=== PATIENT | female | born 1960 | race Caucasian/White ===

== ENCOUNTER 2016-07-17 06:35 | Outpatient (CLI) | payer MEDICAID ==
[~2016-07-17] VITALS: Ht 160 cm; Wt 73.2 kg
--- NOTE | ~2016-07-17 | HEMODYNAMI ---
PATIENT:MILY CRANE MEDICAL RECORD: [id number] : 60 LOCATION:[facility] ADMISSION DATE: 07/17/16 Generatedon:07/17/201610:45 Patient name: MILY CRANE Patient #: [id number] SSN: : 1960 Date of study: 07/17/2016 Page: Of Hemodynamic Procedure Report Patient Data Patient Demographics Procedure consent was obtained First Name: MILY Gender: Female Last Name: ROSA MARIA : 1960 Patient #: [id number] Age: 55 year(s) Race: Unknown Additional ID: [id number] Contact details [address]: [address] [place] [address] State: [place] City: [place] Zip code: [address] Past Medical History Allergies Allergen Reaction Date Comments Reported Penicillins 07/17/2016 Other allergy 07/17/2016 HALDOL, SUDAFED, ABILIFY, COGENTIN, BUTABARBITAL Admission Admission Data Admission Date: 07/17/2016 Admission Time: 6:35 Lab Results Lab Result Date: 07/17/2016 Lab Result Time: 0:00 Biochemistry Name Units Result Min Max BUN mg/dl 14 --(--*-)-- 7 18 Creatinine mg/dl 0.8 --(-*--)-- 0.6 1.3 CBC Name Units Result Min Max Hemoglobin g/dl 13.2 -*(----)-- 13.5 17.5 Procedure Procedure Types Cath Procedure Diagnostic Procedure LHC LHC w/Coronaries PCI Procedure Coronary Stent Initial Miscellaneous Procedures Moderate Sedation up to 15 minutes Peripheral Cath Diagnostic Procedure Cath Peripheral Bpdfc-Abhpodr-Qxk-Off Procedure Description Procedure Date Procedure Date: 07/17/2016 Procedure Start Time: 10:28 Procedure End Time: 10:42 Procedure Staff Name Function Chay Alanzi MD Performing Physician Rosa Isela Santillan RN Nurse Dominick White RT Monitor Jeremias Woodson RT Scrub Procedure Data Cath Procedure Fluoroscopy Diagnostic fluoroscopy Total fluoroscopy Time: 2.3 time: 2.3 min min Diagnostic fluoroscopy Total fluoroscopy dose: 282 dose: 282 mGy mGy Contrast Material Contrast Material Type Amount (ml) Isovue 300 92 Entry Location Entry Primary Successful Side Size Upsize Upsize Entry Closure Succes sful Closure Location (Fr) 1 (Fr) 2 (Fr) Remarks Device Remarks Femoral Left 5 Fr Vascade artery Closure System Diagnostic catheters Device Type Used For End Catheter Placement Cordis 5Fr Pigtail LV Angiography Catheter (MP) Cordis 5Fr Pigtail Abdominal Catheter (MP) aortogram with runoff Cordis 5Fr JL 4.0 Left Coronary Catheter (MP) Angiography Cordis 5Fr 3DRC Catheter Right Coronary (MP) Angiography Procedure Complications No complications Procedure Medications Medication Administration Route Dosage Oxygen NC 2 l/min Lidocaine 2% added to field 20 Heparin Flush Bag added to field 2 bags (1000units/500ml NS) Versed I.V. 1 mg Fentanyl I.V. 50 mcg Versed I.V. 1 mg Fentanyl I.V. 50 mcg Versed I.V. 1 mg Fentanyl I.V. 50 mcg Heparin Bolus I.V. 4000 units Integrilin (Bolus I.V. 6.8 ml 2mg/ml) Plavix P.O. 600 mg Versed I.V. 1 mg Fentanyl I.V. 50 mcg Hemodynamics Rest HGB: 13.2 (g/dl) Heart Rate: 83 (bpm) Snapshots Pre Cath Intra NCS Post Cath Vital Signs Time Heart Resp SPO2 etCO2 [id number] NIBP (mmHg) Rhythm Pain Sedation Rate (ipm) (%) (mmHg) (mmHg) Status Level (bpm) 10:12:13 91 16 98 0 0 144/88(113) NSR 0 (11) 10(A) , No pain 10:16:24 88 14 95 0 0 133/80(109) NSR 0 (11) 10(A) , No pain 10:20:41 83 17 98 0 0 117/78(89) NSR 0 (11) 10(A) , No pain 10:24:48 94 16 95 0 0 122/77(96) NSR 0 (11) 10(A) , No pain 10:29:02 89 16 95 0 0 138/71(98) NSR 0 (11) 10(A) , No pain 10:33:12 89 16 96 0 0 116/78(105) NSR 0 (11) 10(A) , No pain 10:37:20 105 16 97 0 0 139/82(105) NSR 0 (11) 10(A) , No pain 10:41:57 104 16 98 0 0 120/77(94) NSR 0 (11) 10(A) , No pain Medications Time Medication Route Dose Verified Delivered Reason Notes Effectiveness by by 10:11:30 Oxygen NC 2 Chay Rosa Isela Per physician l/min Katty Santillan RN 10:11:38 Lidocaine 2% added 20ml Chay Chay used for to vial Katty Alaniz MD procedure field 10:11:48 Heparin Flush added 2 Chay Chay used for Bag to bags Katty Alaniz MD procedure (1000units/500ml field NS) 10:24:03 Versed I.V. 1 mg Chay Rosa Isela for sedation Katty Santillan RN 10:24:12 Fentanyl I.V. 50 Chay Rosa Isela for sedation mcg Katty Santillan RN 10:26:34 Versed I.V. 1 mg Chay Rosa Isela for sedation Katty Santillan RN 10:26:36 Fentanyl I.V. 50 Chay Rosa Isela for sedation mcg Katty Santillan RN 10:28:37 Versed I.V. 1 mg Chay Rosa Isela for sedation Katty Santillan RN 10:28:40 Fentanyl I.V. 50 Chay Rosa Isela for sedation mcg Katty Santillan RN 10:31:37 Versed I.V. 1 mg Chay Rosa Isela for sedation Katty Santillan RN 10:31:46 Fentanyl I.V. 50 Chay Rosa Isela for sedation mcg Katty Santillan RN 10:34:37 Heparin Bolus I.V. 4000 Chay Rosa Isela for dose units Katty Santillan RN anticoagulation verified with dr alaniz 10:36:42 Integrilin I.V. 6.8 Chay Rosa Isela for 6.8 ml (Bolus 2mg/ml) ml Katty Santillan RN antiplatelet administered therapy from 10ml vial 3.2 ml wasted 10:39:23 Plavix P.O. 600 Chay Rosa Isela for mg Katty Santillan RN antiplatelet therapy Procedure Log Time Note 9:45:39 Jeremias Woodson RT(R) sent for patient. Start room use. 9:53:29 ACC Patient presents with Stable Angina CCS Anginal Class 2--Slight limitation of ordinary activity. 9:53:37 Diagnostic Cath status Elective 9:53:40 Time tracking: Regular hours 9:53:44 Plan of Care:Hemodynamics will remain stable., Cardiac rhythm will remain stable., Comfort level will be maintained., Respiratory function will remain adequate., Patient/ family verbilizes understanding of procedure., Procedure tolerated without complication., Recovers from procedure without complications.. 10:08:42 Patient received from Pre/Post Procedure Room to CCL 1 Alert and oriented. Tansferred to table in Supine position. 10:08:44 Warm blankets applied, and reynaldo hugger turned on for patient comfort. 10:08:45 Correct patient and procedure confirmed by team. 10:08:46 Signed procedure consent form obtained from patient. 10:08:46 ECG and BP/O2 sat monitors applied to patient. 10:11:13 Vital chart was started 10:11:30 Oxygen 2 l/min NC was given by Rosa Isela Santillan RN; Per physician; 10:11:38 Lidocaine 2% 20ml vial added to field was given by Chay Alaniz MD; used for procedure; 10:11:48 Heparin Flush Bag (1000units/500ml NS) 2 bags added to field was given by Chay Alaniz MD; used for procedure; 10:17:50 Baseline sample Acquired. 10:18:18 Baseline sample Acquired. 10:18:21 Rhythm: sinus rhythm 10:18:23 Full Disclosure recording started 10:19:16 H&P Date Dictated: 07/12/2016 Within 30 days and on chart., H&P Addendum completed by physician on day of procedure. (MUST COMPLETE FOR ALL OUTPATIENTS). 10:19:17 Pre-procedure instructions explained to patient. 10:19:18 Pre-op teaching completed and patient verbalized understanding. 10:19:20 Family unavailable. 10:19:22 Patient NPO since Midnight. 10:19:36 Patient allergic to Penicillins 10:20:18 Patient allergic to Other allergyHALDOL, SUDAFED, ABILIFY, COGENTIN, BUTABARBITAL 10:20:22 Is the patient allergic to Iodine/contrast media? No. 10:20:27 Is patient on blood thinner?No 10:20:36 Patient diabetic? Yes. 10:20:37 ----Pre-sedation anethsthesia assessment.---- 10:20:40 Previous problem with sedation/anesthesia? No ? 10:20:41 Snore? Yes 10:20:45 Sleep apnea? Yes 10:20:51 Deviated septum? No 10:20:55 Opens mouth fully? Yes 10:20:57 Sticks out tongue? Yes 10:21:01 Airway obstruction? Yes COPD 10:21:06 Dentures? Yes OUT 10:21:17 If diabetic: On Metformin? Yes 10:21:58 If on Metformin: Last Dose? 07/15/2016 10:22:07 Pre procedure: right dorsailis pedis pulse 1+ Palpable, but thready & weak; easily obliterated 10:22:09 Pre procedure: left dorsailis pedis pulse 1+ Palpable, but thready & weak; easily obliterated 10:22:11 Pre procedure: right dorsailis pedis pulse 1+ Palpable, but thready & weak; easily obliterated 10:22:19 Patient pain scale 0/10 ?. 10:22:43 IV patent on arrival in right forearm with 0.9% NaCl at 10ml/hr. 10:23:34 Lab Result : BUN 14 mg/dl 10:23:34 Lab Result : Creatinine 0.8 mg/dl 10:23:34 Lab Result : Hemoglobin 13.2 g/dl 10:23:38 Lab results completed and on chart. 10:23:41 Bilateral groins area was prepped with chlora-prep and draped in sterile fashion 10:23:42 Alarms reviewed by R. N. 10:23:42 Sharps counted by scrub and verified by R.N. 10:23:43 Physician arrived 10:23:43 --------ALL STOP TIME OUT------ 10:23:44 Final Timeout: patient, procedure, and site verified with staff and physician. All members of the team are in agreement. 10:23:50 Bilateral groins site verified by team. 10:23:53 Physical assessment completed. ASA score P 2 - A patient with mild systemic disease as per Chay Alaniz MD. 10:23:58 Sedation plan: IV Moderate Sedation Versed, Fentanyl 10:24:03 Versed 1 mg I.V. was given by Rosa Isela Santillan RN; for sedation; 10:24:12 Fentanyl 50 mcg I.V. was given by Rosa Isela Santillan RN; for sedation; 10:26:34 Versed 1 mg I.V. was given by Rosa Isela Santillan RN; for sedation; 10:26:36 Fentanyl 50 mcg I.V. was given by Rsoa Isela Santillan RN; for sedation; 10:27:25 Use device set Femoral Dx 10:27:26 Acist Syringe opened to sterile field. 10:27:26 Bag Decanter opened to sterile field. 10:27:27 Medline Cath Pack opened to sterile field. 10:27:27 Terumo 5Fr [place] Sheath opened to sterile field. 10:27:28 St Franky 260cm J .035 wire opened to sterile field. 10:27:29 Acist Hand Control opened to sterile field. 10:27:29 Acist Manifold opened to sterile field. 10:27:30 Diagnostic Infinity 5Fr Multipack catheter opened to sterile field. 10:27:30 Tegaderm 4 x 4 opened to sterile field. 10:28:37 Versed 1 mg I.V. was given by Rosa Isela Santillan RN; for sedation; 10:28:38 Procedure started. 10::40 Fentanyl 50 mcg I.V. was given by Rosa Isela Santillan RN; for sedation; 10:28:50 Local anesthetic to left femerol artery with Lidocaine 2% by Chay Alaniz MD.INITIAL ACCESS ONLY 10:29:09 A 5 Fr sheath was inserted into the Left Femoral artery 10:29:49 A Cordis 5Fr Pigtail Catheter (MP) was advanced over the wire and used for LV Angiography. 10:29:55 A Cordis 5Fr Pigtail Catheter (MP) was advanced over the wire and used for Abdominal aortogram with runoff. 10:30:00 LV angiography performed. 10:30:04 LV gram done using TAYLOR 10:30:10 Injector settings: Ml/sec: 120, Volume: ?, 10:30:14 Injector settings: Ml/sec: 7, Volume: 15, 10:30:25 EF : 55 % 10:30:29 Abdominal angiogram w/ runoff was performed. 10:30:31 Left leg runoff performed. 10:30:33 Right leg runoff performed. 10:31:03 Catheter removed. 10:31:09 A Cordis 5Fr JL 4.0 Catheter (MP) was advanced over the wire and used for Left Coronary Angiography. 10:31:16 LCA angiography performed. 10:31:37 Versed 1 mg I.V. was given by Rosa Isela Santillan RN; for sedation; 10:31:46 Fentanyl 50 mcg I.V. was given by Rosa Isela Santillan RN; for sedation; 10:32:02 Catheter removed. 10:32:24 A Cordis 5Fr 3DRC Catheter (MP) was advanced over the wire and used for Right Coronary Angiography. 10:32:27 RCA angiography performed. 10:33:07 Catheter removed. 10:34:37 Heparin Bolus 4000 units I.V. was given by Rosa Isela Santillan RN; for anticoagulation; dose verified with dr alaniz 10:36:03 Cordis 6FR XBLAD 3.5 guide catheter opened to sterile field. 10:36:03 RADLIVEisper J 300cm 0.014 guide wire opened to sterile field. 10:36:03 Relatient BasixCompak Inflation Kit opened to sterile field. 10:36:04 Terumo 6Fr [place] Sheath opened to sterile field. 10:36:16 6 Fr XBLAD 3.5 guide catheter was inserted over the wire 10:36:22 Veros SystemsISPER wire advanced. 10:36:42 Integrilin (Bolus 2mg/ml) 6.8 ml I.V. was given by Rosa Isela Santillan RN; for antiplatelet therapy; 6.8 ml administered from 10ml vial 3.2 ml wasted 10:36:56 Inflation Number: 1 A Promus Premier OTW 3.0 x 20 stent was prepped and advanced across the Mid LAD. The stent was deployed at 15 ASPEN for 0:10 (min:sec). 10:37:10 Inflation number: 2 The stent balloon was then re-inflated across the Mid LAD to 17 ASPEN for 0:12 (min:sec). 10:37:20 ACC PCI Site: mLAD has 75% stenosis. 10:37:22 ACC Pre-intervention DARLING Flow is 3. 10:37:31 ACC Post-intervention DARLING Flow is 3. 10:37:32 Stent catheter was removed intact over wire. 10:37:33 Wire removed. 10:37:33 Guide catheter removed. 10:37:45 Sheath removed intact; hemostasis achieved with Vascade Closure System to the Left Femoral artery. 10:37:52 Vascade 6/7 Fr Closure Device opened to sterile field. 10:38:53 Procedure ended.(Physican Out) 10:39:03 Fluoroscopy time 02.30 minutes. 10:39:11 Fluoroscopy dose: 282 mGy 10:39:11 Flurop Dose total: 282 10:39:21 Contrast amount:Isovue 300 92ml. 10:39:23 Plavix 600 mg P.O. was given by Rosa Isela Santillan RN; for antiplatelet therapy; 10:39:23 Sharps counted by scrub and verified by R.N. 10:39:25 Insertion/operative site no bleeding no hematoma. 10:39:28 Post-op/insertion site Left Femoral artery dressed using a 4 x 4 and Tegaderm. 10:39:34 Post left femerol artery:stable 10:39:39 Post Procedure Pulses reassessed and unchanged 10:39:42 Post procedure: left dorsailis pedis pulse 1+ Palpable, but thready & weak; easily obliterated. 10:39:45 Post procedure rhythm: sinus rhythm 10:39:46 Post procedure instruction explained to patient.Patient verbalizes understanding. 10:40:00 Procedure type changed to Cath procedure, Diagnostic procedure, LHC, LHC w/Coronaries, PCI procedure, Coronary Stent Initial, Miscellaneous Procedures, Moderate Sedation up to 15 minutes, Peripheral Cath Diagnostic Procedure, Cath Peripheral, Uvgxo-Jwpflvo-Feh-Off 10:41:04 Procedure and supply charges have been captured, reviewed, submitted and are correct. 10:41:09 Procedure Complication : No complications 10:42:28 Vital chart was stopped 10:42:29 See physician's report for complete and final results. 10:42:30 Report given to Pre/Post Procedure Room. 10:42:33 Patient transfered to Pre/Post Procedure Room with Stretcher. 10:42:36 Procedure ended. 10:42:36 Full Disclosure recording stopped 10:42:41 ACC-PCI Only Patient was given prescriptions, or instructed by Chay Alaniz MD to start/continue the following medications upon discharge: Plavix 10:42:43 End room use (Document Last) Intervention Summary Intervention Notes Time ActionType Lesion and Equipment Action# Pressure Duration Attributes Used 10:36:56 Place stent Mid LAD Promus 1 15 00:10 Premier OTW 3.0 x 20 stent 10:37:10 Reinflate Mid LAD Promus 2 17 00:12 stent Premier balloon OTW 3.0 x 20 stent Device Usage Item Name Manufacture Quantity Catalog Number Hospital Part Current Mini mal Lot# / Charge Number Stock Stock Serial# Code Acist Acist 1 18191 [id number] 412002 235691 20 Syringe Medical Systems Inc Bag Microtek 1 2002S [id number] 08599 845299 5 [employer] Inc. Medline Cardinal 1 [id number] 915620 56765 396201 5 Cath Pack Health Terumo 5Fr Terumo 1 HCV195 630758 350055 527900 [address] Franky 1 [id number] 618599 748012 869055 30 260cm J .035 wire Acist Hand Acist 1 98281 467814 407506 862732 5 Cl[employer]x [employer] Inc Acist Acist 1 61661 377326 977143 439527 5 [employer] Inc Diagnostic Cardinal 1 [id number] 813338 06475 467077 30 Infinity Health 5Fr Multipack catheter Tegaderm 4 3M 1 1626W 284644 936807 946905 5 x 4 Cordis 5Fr Cardinal 1 [id number] 5 Pigtail Health Catheter (MP) Cordis 5Fr Cardinal 1 147475 5 JL 4.0 Health Catheter (MP) Cordis 5Fr Cardinal 1 181294 5 3DRC Health Catheter (MP) Cordis 6FR Cardinal 1 [id number] 222159 314594 510048 10 XBLAD 3.5 Health guide catheter Cardoso Cardoso 1 [id number] 070815 040384 882507 5 Whisper J Vascular 300cm 0.014 guide wire Merit Merit 1 [id number] 081461 827123 050697 15 Taxizu Medical Inflation Kit Terumo 6Fr Terumo 1 [id number] 143307 477783 976230 40 [place] Sheath Promus [place] 1 [id number] 281607 010981 5 [id number] Premier OTW Scientific 3.0 x 20 stent Vascade 6/7 Cardiva 1 [id number] 261407 186438 176994 5 Fr Closure Medical, Device Inc. Signature Audit [place] Stage Time Signature Unsigned Intra-Procedure 07/17/2016 Dominick White 10:45:26 AM RT(R) Signatures Monitor : Dominick White RT Signature : Date : Time : [address] [address]
[2016-07-17 08:27] LABS: BASOPHILS 0.3 % (0.0-2.0); EOSINOPHILS 1.9 % (0-7); HEMATOCRIT 39.8 % (36.0-48.0); HEMOGLOBIN 13.2 g/dL (12-16); IMMATURE GRANULOCYTES 0.3 % (0-5); LYMPHOCYTES 41.2 % (15-50); MCH 31.4 pg (26.0-34.0); MCHC 33.2 g/dL (31.0-37.0); MCV 94.5 fL (80.0-100.0); MEAN PLATELET VOLUME 9.4 fL (7.4-10.4); MONOCYTES 6.6 % (2-11); NEUTROPHILS 49.7 % (40-80); PLATELET COUNT 235 10x3/uL (130-400); RBC 4.21 10x6/uL (4.00-5.40); RDW 12.4 % (11.5-14.5); WBC 7.8 10x3/uL (4.8-10.8)
[2016-07-17] MEDS ORDERED: VASOTEC2.5 MG PO (08:27)
[2016-07-17] MEDS ORDERED: GLIPIZIDE10 MG PO (08:28)
[2016-07-17] MEDS ORDERED: GLUCOPHAGE1000 MG PO (08:28)
[2016-07-17] MEDS ORDERED: ZANTAC150 MG PO (08:28)
[2016-07-17] MEDS ORDERED: ZOCOR20 MG PO (08:28)
[2016-07-17] MEDS ORDERED: ATROVENT HFA12.9 GM INH ×2 (08:29→08:30)
[2016-07-17] MEDS ORDERED: MULTI-DAY VITAM1 TAB PO (08:30)
[2016-07-17] MEDS ORDERED: EXCEDRIN CAPLET1 TAB PO (08:31)
[2016-07-17 08:32] VITALS: BP 129/59; Ht 160 cm; Wt 73.2 kg
[2016-07-17 08:36] LABS: CALC OSMOLALITY 288 mosm/kg (275-300); CALCIUM 9.1 mg/dL (8.5-10.1); CHLORIDE - SERUM 104 mmol/L (98-107); CREATININE - SERUM 0.8 mg/dL (0.6-1.3); GLUCOSE 187 mg/dL (74-106); POTASSIUM - SERUM 3.6 mmol/L (3.5-5.1); SODIUM 142 mmol/L (136-145); UREA NITROGEN 14 mg/dL (7-18); eGFR NON AFRICAN AMERICAN 79 mL/min (90-120)
[2016-07-17] MEDS ORDERED: PLAVIX75 MG PO (11:02)
--- NOTE | 2016-07-17 11:13 | NUR ---
RESTING QUIETLY WITH EYES CLOSED VSS 02 AT 2 LITERS 6 FR VASCADE L/GROIN CDI NO BLEEDING NO HEMATOMA NOTED INSTRUCTED PATIENT TO KEEP HEAD FLAT ON PILLOW WITH LLE STRAIGHT
--- NOTE | 2016-07-17 11:38 | NUR ---
RESTING QUIETLY WITH EYES CLOSED NO DISTRESS. VSS 6 FR VASCADE L/GROIN CDI NO BLEEDING NO HEMATOMA NOTED PULSES PRESENT AND MARKED
--- NOTE | 2016-07-17 12:02 | NUR ---
NO CHANGE IN ASSESSMENT CONTINUES TO SLEEEP WITH NO DISRESS VSS.
--- NOTE | 2016-07-17 12:30 | NUR ---
1230 VSS WITH CHEST PAIN DENIED 6 FR VASCADE L/GROIN CDI NO BLEEDING NO HEMATOMA NOTED. VSS WILL MONITOR
--- NOTE | 2016-07-17 13:00 | NUR ---
6 FR VASCADE L/GROIN CDI NO BLEEDING NO HEMATOMA NOTED. VSS WITH CHEST PAIN DENIED
--- NOTE | 2016-07-17 13:30 | NUR ---
1330 VSS WITH CHEST PAIN DENIED 6 FR VASCADE L/GROIN CDI NO BLEEDING NO HEMATOMA NOTED
--- NOTE | 2016-07-17 14:59 | NUR ---
PIV REMOVED FROM LEFT ARM WITH DRESSING APPLIED. 6 FR VASCADE L/GROIN CDI NO BLEEDING NO HEMATOMA NOTED CHEST PAIN IS DENIED. PATIENT UP TO GET DRESSED FOR DISCHARGE HOME
--- NOTE | 2016-07-17 15:33 | NUR ---
DISCHARGE GONE OVER WITH PATIENT WRITTEN AND VERBAL VERBALIZED UNDERSTANDING. 6 FR VASCADE L/GROIN CDI NO BLEEDING NO HEMATOMA NOTED CHEST PAIN IS DENIED LEFT VIA WC TO PARKING FOR SCAT BUS TRANSPORT
--- NOTE | 2016-07-30 10:08 | OP ---
PATIENT NAME: MILY CRANE MEDICAL RECORD: [id number] :60 LOCATION:[facility] ADMISSION DATE: SURGEON: SHARONA PARADA MD DATE OF OPERATION: 07/17/2016 PROCEDURES: 1. PTCA stent LAD. 2. Left heart catheterization. 3. Selective coronary angiography. 4. Left ventriculogram. INDICATION: Angina and coronary artery disease. PROCEDURE: After informed consent was obtained and after a detailed explanation of risks, benefits as well as alternative therapies, the patient elected to proceed with angiogram and angioplasty. The left femoral area was prepped and draped in normal sterile fashion. The left femoral artery was cannulated via modified Seldinger technique with placement of 6-Cameroonian sheath. All catheters exchanged through this sheath. FINDINGS: The left ventriculogram was performed in standard 30-degree TAYLOR view, reveals good cardiac wall motion throughout all segments. Overall ejection fraction estimated at 55% to 60%. SELECTIVE CORONARY ANGIOGRAPHY: 1. Left main showed no significant angiographic disease. 2. Left anterior descending has a 75% to 80% stenosis proximally. 3. Left circumflex shows moderate irregularities, but no flow-limiting stenosis. 4. Right coronary has moderate irregularities, but no flow-limiting stenosis. PERCUTANEOUS TRANSLUMINAL CORONARY ANGIOPLASTY STENT OF THE LEFT ANTERIOR DESCENDING: The stent used was a 3.0 x 20 mm Promus. Result was 0% residual stenosis. OVERALL IMPRESSION: Successful percutaneous transluminal coronary angioplasty stent of the left anterior descending going from 75% to 80% initial stenosis to 0% residual. DATE OF PROCEDURE: 07/17/2016 PROCEDURE: 1. Aortofemoral runoff. 2. Abdominal aortography. INDICATION: Leg pain compatible with claudication. PROCEDURE IN DETAIL: After informed consent was obtained and after detailed explanation of risks, benefits as well as alternative therapies, the patient elected to proceed with angiogram and aortofemoral runoff. The left femoral area had a preexisting sheath from cardiac intervention. All catheters exchanged through this sheath. FINDINGS: Abdominal aortography was performed. The catheter was pulled down for aortofemoral runoff. Abdominal aortography reveals no significant abdominal OPERATIVE REPORT [id number] MILY CRANE aortic disease, no dissection or aneurysm formation. No renal artery stenosis. RIGHT LEG: A. Iliac: The common internal and external iliacs have moderate irregularities, but no flow-limiting stenosis. B. Femoral system: The common superficial and deep femoral have moderate irregularities, but no flow-limiting stenosis. C. Popliteal and infrapopliteal vessels are widely patent with good 3-vessel runoff to the foot. LEFT LEG: A. Iliac: The common internal and external iliacs have moderate irregularities, but no flow-limiting stenosis. B. Femoral system: The common superficial and deep femoral have moderate irregularities, but no flow-limiting stenosis. C. Popliteal and infrapopliteal vessels are widely patent with good 3-vessel runoff to the foot. OVERALL IMPRESSION: No significant peripheral vascular disease is present. Leg pain is not due to arterial vascular insufficiency. TRANSINT:[id number] Voice Confirmation ID: [id number] DOCUMENT ID: [id number] SHARONA PARADA MD at 1008 CC: [id number] DICTATION DATE: 07/17/16 1045 REGIONAL MERCHANDISING MANAGER: 07/17/16 1937 DEP CLI 07/17/16 [facility] [address] [place] [address]
== END 2016-07-17 15:35 | disposition home or self-care (01) ==
LOC: D.CATH 06:35
PROVIDERS: Internal Medicine Interventional Cardiology
DX: I25.119 Atherosclerotic heart disease of native coronary artery with unspecified angina pectoris (principal)